=== PATIENT | female | born 1945 | race Caucasian/White ===

== ENCOUNTER 2017-04-28 15:09 | Emergency (ER) | payer MEDICARE ==
[2017-04-28] MEDS ORDERED: TRAZ-146 PO (21:18)
[2017-04-28] MEDS ORDERED: LISI-600 PO (21:18)
[2017-04-28] MEDS ORDERED: AMLO5TAB PO (21:18)
[2017-04-28] MEDS ORDERED: PARO40TA4 PO (21:18)
== END 2017-04-28 16:24 | disposition left against medical advice (07) ==
LOC: ER 15:10
DX: K92.1 Melena (principal); Z53.21 Procedure and treatment not carried out due to patient leaving prior to being seen by health care provider

== ENCOUNTER 2017-04-28 16:55 | Inpatient (IN) | payer MEDICARE ==
[~2017-04-28] VITALS: Ht 160 cm; Wt 53.8 kg
[2017-04-28 17:38] LABS: BASOPHILS # (AUTO) 0.1 X10'3 (0-0.2); BASOPHILS % (AUTO) 0.8 % (0-1); EOSINOPHILS # (AUTO) 0.2 X10'3 (0-0.9); EOSINOPHILS % (AUTO) 2.2 % (0-6); HEMATOCRIT 35.7 % (35.0-45.0); LYMPHOCYTES # (AUTO) 2.4 X10'3 (1.1-4.8); MEAN CORPUSCULAR HEMOGLOBIN 32.3 PG (27.0-31.0); MEAN CORPUSCULAR HGB CONC 33.6 % (33.0-36.5); MEAN CORPUSCULAR VOLUME 96.1 FL (78-98); MEAN PLATELET VOLUME 7.3 FL (7.4-10.4); MONOCYTES # (AUTO) 0.8 X10'3 (0-0.9); MONOCYTES % (AUTO) 9.2 % (2-12); NEUTROPHILS # (AUTO) 5.4 X10'3 (1.8-7.7); NEUTROPHILS % (AUTO) 60.8 % (42-75); PLATELET COUNT 337 X10'3 (140-440); RED BLOOD COUNT 3.71 X10'6 (4.20-5.60); RED CELL DISTRIBUTION WIDTH 18.1 % (11.5-14.5); WHITE BLOOD COUNT 8.9 X10'3 (4.5-11.0)
[2017-04-28 17:48] LABS: INR 0.9 INR; PROTHROMBIN TIME 9.3 SECONDS (9.0-12.0)
[2017-04-28 17:52] LABS: ALANINE AMINOTRANSFERASE 33 U/L (12-78); ALBUMIN/GLOBULIN RATIO 1.3 (1.1-1.5); ALKALINE PHOSPHATASE 88 IU/L (46-116); ANION GAP 13 (8-16); ASPARTATE AMINO TRANSFERASE 50 U/L (10-37); BILIRUBIN,TOTAL 0.3 MG/DL (0.1-1.0); BLOOD UREA NITROGEN 31 MG/DL (7-18); BUN/CREATININE RATIO 34.4 (6.6-38.0); CALCIUM 9.4 MG/DL (8.5-10.1); CHLORIDE 104 MMOL/L (99-107); GLUCOSE 104 MG/DL (70-104); SODIUM 143 MMOL/L (135-145); TOTAL CARBON DIOXIDE 25.9 MMOL/L (24-32); TOTAL PROTEIN 7.2 G/DL (6.4-8.2); eGFR 62 ML/MIN
[2017-04-28 19:23] LABS: PARTIAL THROMBOPLASTIN TIME 25 SECONDS (22-32)
[2017-04-28 19:31] LABS: LIPASE 1846 U/L (73-393)
[2017-04-28 20:41] LABS: CLARITY,URINE CLEAR (Clear); COLOR,URINE YELLOW (Yellow); GLUCOSE, URINE NEGATIVE (Neg); KETONES,URINE 15 mg/dl (Neg); LEUKOCYTE ESTERASE ,URINE TRACE (Neg); NITRITES, URINE NEGATIVE (Neg); OCCULT BLOOD,URINE NEGATIVE (Neg); PH,URINE 5.5 (4.8-8.0); PROTEIN,URINE NEGATIVE (Neg); UROBILINOGEN,URINE 0.2 E.U/dL (0.2-1.0)
[2017-04-28 20:47] LABS: UA COLLECTION TYPE CLN CATCH MIDSTREAM
[2017-04-28 20:57] LABS: BACTERIA,URINE 4+ /HPF (Neg); RBC,URINE 0-2 /HPF (0-2); SQUAMOUS EPITHELIAL CELL,UR MODERATE /LPF (FEW)
[2017-04-28] MEDS ORDERED: temazepam 15mg capsule PO PRN (21:00)
[2017-04-28] MEDS: normal saline 1000ml 1,000 ML IV SCH (21:11)
[2017-04-28] MEDS ORDERED: magnesium Cl slow-release 64mg tablet PO PRN (21:15)
[2017-04-28] MEDS ORDERED: thiamine 100mg/ml 2ml inj. IV ONE (21:15)
[2017-04-28] MEDS ORDERED: dextrose 50%-water 50ml dispensing syringe IV PRN (21:15)
[2017-04-28] MEDS ORDERED: ondansetron/PF 4mg/2ml inj IV PRN (21:15)
[2017-04-28] MEDS ORDERED: ipratropium/albuterol 3ml nebule NEB PRN (21:15)
[2017-04-28] MEDS ORDERED: mag hydrox/Alum hydrox/simeth 30ml oral suspension PO PRN (21:15)
[2017-04-28] MEDS ORDERED: haloperidol lactate 5mg/ml inj IM PRN (21:15)
[2017-04-28] MEDS ORDERED: potassium Cl 20 mEq SR tablet PO PRN (21:15)
[2017-04-28] MEDS ORDERED: potassium Cl 40MEQ/NS 500ml 500 ML IV PRN ×2 (21:15)
[2017-04-28] MEDS ORDERED: acetaminophen 325mg tablet PO PRN (21:15)
[2017-04-28] MEDS ORDERED: HYDROmorphone inj. 0.5 MG/0.5 ML DISP.SYRIN IV PRN ×2 (21:15)
[2017-04-28] MEDS ORDERED: haloperidol 5mg tablet PO PRN (21:15)
[2017-04-28] MEDS ORDERED: magnesium 2GM in 50ml NS 50 ML IV PRN (21:15)
[2017-04-28] MEDS ORDERED: magnesium 4gm in 100ml NS 100 ML IV PRN (21:15)
[2017-04-28] MEDS ORDERED: magnesium hydroxide 30ml (MOM) UD suspension PO PRN (21:15)
[2017-04-28] MEDS ORDERED: albuterol 2.5 MG/3 ML nebule NEB PRN (21:15)
[2017-04-28] MEDS ORDERED: TRAZ-146 PO (21:18)
[2017-04-28] MEDS ORDERED: PARO40TA4 PO (21:18)
[2017-04-28] MEDS ORDERED: AMLO5TAB PO (21:18)
[2017-04-28] MEDS ORDERED: LISI-600 PO (21:18)
[2017-04-28] MEDS ORDERED: normal saline 1000ml 1,000 ML IV ONE (21:27)
[2017-04-28] MEDS: pantoprazole 40MG/NS 100ML BAG 100 ML IV SCH (21:53)
[2017-04-28] MEDS: LORazepam 2 mg/ml vial IV PRN (22:39)
[2017-04-28 23:00] VITALS: BP 150/66
[2017-04-29] VITALS (12 sets, daily range): BP systolic 100–161; BP diastolic 49–99
[2017-04-29] MEDS: LORazepam 2 mg/ml vial IV PRN ×6 (01:48→21:15)
[2017-04-29] MEDS: cefTRIAXone 1g/NS 100ml IVPB 100 ML IV SCH ×2 (01:48→22:28)
[2017-04-29] MEDS: pantoprazole 40MG/NS 100ML BAG 100 ML IV SCH ×2 (01:55→06:47)
[2017-04-29 05:17] LABS: HEMATOCRIT 30.6 % (35.0-45.0); HEMOGLOBIN 10.4 g/dl (12.0-16.0); MEAN CORPUSCULAR HEMOGLOBIN 32.6 PG (27.0-31.0); MEAN CORPUSCULAR HGB CONC 34.1 % (33.0-36.5); MEAN CORPUSCULAR VOLUME 95.7 FL (78-98); MEAN PLATELET VOLUME 7.7 FL (7.4-10.4); PLATELET COUNT 258 X10'3 (140-440); RED CELL DISTRIBUTION WIDTH 18.3 % (11.5-14.5); WHITE BLOOD COUNT 7.3 X10'3 (4.5-11.0)
[2017-04-29 06:03] LABS: ALANINE AMINOTRANSFERASE 30 U/L (12-78); ALBUMIN 3.2 G/DL (3.4-5.0); ALBUMIN/GLOBULIN RATIO 1.1 (1.1-1.5); ALKALINE PHOSPHATASE 73 IU/L (46-116); ANION GAP 13 (8-16); ASPARTATE AMINO TRANSFERASE 40 U/L (10-37); BILIRUBIN,TOTAL 0.5 MG/DL (0.1-1.0); BLOOD UREA NITROGEN 27 MG/DL (7-18); CALCIUM 8.4 MG/DL (8.5-10.1); CHLORIDE 106 MMOL/L (99-107); CREATININE 0.73 MG/DL (0.40-0.90); GLUCOSE 80 MG/DL (70-104); MAGNESIUM 1.4 MG/DL (1.5-2.4); POTASSIUM 4.2 MMOL/L (3.5-5.1); SODIUM 143 MMOL/L (135-145); TOTAL CARBON DIOXIDE 23.8 MMOL/L (24-32); TOTAL PROTEIN 6.1 G/DL (6.4-8.2); eGFR 79 ML/MIN
[2017-04-29] MEDS: normal saline 1000ml 1,000 ML IV SCH (06:48)
[2017-04-29 07:22] LABS: TOTAL CELLS COUNTED 100
[2017-04-29 07:23] LABS: ANISOCYTOSIS 2+; HYPOCHROMASIA 1+; PLATELET ESTIMATE NORMAL; SCHISTOCYTES FEW; TARGET CELLS 1+
[2017-04-29] MEDS: K and/or MAG REPLACEMENT MC SCH (08:00)
[2017-04-29] MEDS ORDERED: cefTRIAXone 1g/NS 100ml IVPB 100 ML IV SCH (08:00)
[2017-04-29] MEDS ORDERED: pneumococcal 23-VAL P-sac vacc 25 mcg/0.5ml vial IMVAC ONE (10:00)
[2017-04-29] MEDS ORDERED: FLU VACC QS2017-18 36MOS UP/PF 60 MCG/0.5 ML SYRINGE IMVAC ONE (10:00)
[2017-04-29] MEDS: dextrose 5%-normal saline 1,000 ML IV SCH ×2 (10:12→19:32)
[2017-04-29] MEDS ORDERED: normal saline 1000ml 1,000 ML IV SCH (11:37)
[2017-04-29] MEDS ORDERED: MIDAZolam 1mg/ml 10ml vial IV PRN (11:40)
[2017-04-29] MEDS ORDERED: fentaNYL/PF 50MCG/1 ML 2ML syringe IV PRN (11:40)
[2017-04-29] MEDS ORDERED: LIDOcaine Viscous 15ml cup PO ONE (11:40)
[2017-04-29] MEDS ORDERED: simethicone 40mg/0.6ml oral drops 30ml MC ONE (11:40)
[2017-04-29] MEDS ORDERED: fentaNYL/PF 50MCG/1 ML 2ML syringe ONE (11:45)
[2017-04-29] MEDS ORDERED: LIDOcaine Viscous 15ml cup ONE (11:45)
[2017-04-29] MEDS ORDERED: MIDAZolam 1mg/ml 10ml vial ONE (11:45)
[2017-04-29] MEDS: lactobacillus rhamnosus 10,000 MMU CELLS/CAPSULE PO SCH (16:52)
[2017-04-29] MEDS: pantoprazole 40mg Tablet.DR PO SCH (19:23)
[2017-04-29] MEDS: traZODone 50mg tablet PO SCH (21:15)
[2017-04-30] VITALS: BP 152/66
[2017-04-30] MEDS: dextrose 5%-normal saline 1,000 ML IV SCH ×2 (01:36→14:25)
[2017-04-30] MEDS: thiamine 100mg tablet PO SCH (07:06)
[2017-04-30] MEDS: multivitamins, therapeutics tablet PO SCH (07:06)
[2017-04-30] MEDS: pantoprazole 40mg Tablet.DR PO SCH ×2 (07:06→21:35)
[2017-04-30] MEDS: lisinopril 20mg tablet PO SCH (07:06)
[2017-04-30] MEDS: amLODIPine 5mg tablet PO SCH (07:06)
[2017-04-30] MEDS: lactobacillus rhamnosus 10,000 MMU CELLS/CAPSULE PO SCH ×2 (07:08→17:15)
[2017-04-30 07:12] LABS: HEMATOCRIT 30.5 % (35.0-45.0); HEMOGLOBIN 10.4 g/dl (12.0-16.0); MEAN CORPUSCULAR HEMOGLOBIN 32.5 PG (27.0-31.0); MEAN CORPUSCULAR VOLUME 95.7 FL (78-98); MEAN PLATELET VOLUME 7.1 FL (7.4-10.4); PLATELET COUNT 262 X10'3 (140-440); RED BLOOD COUNT 3.19 X10'6 (4.20-5.60); RED CELL DISTRIBUTION WIDTH 17.9 % (11.5-14.5); WHITE BLOOD COUNT 7.1 X10'3 (4.5-11.0)
[2017-04-30] MEDS: LORazepam 2 mg/ml vial IV PRN ×4 (07:12→21:10)
[2017-04-30 07:28] LABS: TOTAL CELLS COUNTED 100
[2017-04-30 07:29] LABS: ALANINE AMINOTRANSFERASE 29 U/L (12-78); ALBUMIN 2.8 G/DL (3.4-5.0); ALKALINE PHOSPHATASE 72 IU/L (46-116); ANION GAP 10 (8-16); ANISOCYTOSIS 2+; ASPARTATE AMINO TRANSFERASE 26 U/L (10-37); BILIRUBIN,TOTAL 0.4 MG/DL (0.1-1.0); BLOOD UREA NITROGEN 11 MG/DL (7-18); BUN/CREATININE RATIO 18.3 (6.6-38.0); CALCIUM 7.7 MG/DL (8.5-10.1); CHLORIDE 108 MMOL/L (99-107); GLUCOSE 151 MG/DL (70-104); LIPASE 291 U/L (73-393); MAGNESIUM 1.5 MG/DL (1.5-2.4); PLATELET ESTIMATE NORMAL; POTASSIUM 3.5 MMOL/L (3.5-5.1); SODIUM 145 MMOL/L (135-145); TARGET CELLS FEW; TOTAL CARBON DIOXIDE 26.9 MMOL/L (24-32); TOTAL PROTEIN 5.7 G/DL (6.4-8.2); eGFR > 90 ML/MIN
[2017-04-30] MEDS: K and/or MAG REPLACEMENT MC SCH (08:00)
[2017-04-30 08:01] VITALS: BP 184/81
[2017-04-30] MEDS: PARoxetine 20mg tablet PO SCH (08:13)
[2017-04-30] MEDS: folic acid/vitamin B complex w/vitamin C 0.8mg tablet PO SCH (08:13)
[2017-04-30 11:34] VITALS: BP 131/58
[2017-04-30 19:00] VITALS: BP 137/69
[2017-04-30] MEDS ORDERED: CefTRIAXone 1 gm/50ml D5W ADV 50 ML IV SCH (21:00)
[2017-04-30] MEDS ORDERED: LORazepam 2 mg/ml vial IV PRN (21:15)
[2017-04-30] MEDS: traZODone 50mg tablet PO SCH ×2 (21:17→21:34)
[2017-05-01] VITALS: BP 150/84
[2017-05-01] MEDS: dextrose 5%-normal saline 1,000 ML IV SCH ×3 (02:05→22:05)
[2017-05-01 05:29] LABS: BASOPHILS % (AUTO) 0.2 % (0-1); EOSINOPHILS # (AUTO) 0.1 X10'3 (0-0.9); EOSINOPHILS % (AUTO) 2.3 % (0-6); HEMATOCRIT 31.2 % (35.0-45.0); HEMOGLOBIN 10.8 g/dl (12.0-16.0); LYMPHOCYTES # (AUTO) 1.6 X10'3 (1.1-4.8); MEAN CORPUSCULAR HEMOGLOBIN 32.5 PG (27.0-31.0); MEAN CORPUSCULAR HGB CONC 34.5 % (33.0-36.5); MEAN CORPUSCULAR VOLUME 94.4 FL (78-98); MEAN PLATELET VOLUME 7.2 FL (7.4-10.4); MONOCYTES # (AUTO) 0.7 X10'3 (0-0.9); MONOCYTES % (AUTO) 10.7 % (2-12); NEUTROPHILS % (AUTO) 61.8 % (42-75); PLATELET COUNT 247 X10'3 (140-440); RED BLOOD COUNT 3.31 X10'6 (4.20-5.60); RED CELL DISTRIBUTION WIDTH 17.4 % (11.5-14.5); WHITE BLOOD COUNT 6.4 X10'3 (4.5-11.0)
[2017-05-01] MEDS: LORazepam 1 MG tablet PO PRN ×4 (05:58→22:53)
[2017-05-01 05:59] LABS: ALANINE AMINOTRANSFERASE 19 U/L (12-78); ALBUMIN 2.9 G/DL (3.4-5.0); ALBUMIN/GLOBULIN RATIO 0.9 (1.1-1.5); ALKALINE PHOSPHATASE 78 IU/L (46-116); ANION GAP 11 (8-16); ASPARTATE AMINO TRANSFERASE 17 U/L (10-37); BILIRUBIN,TOTAL 0.3 MG/DL (0.1-1.0); BLOOD UREA NITROGEN 4 MG/DL (7-18); BUN/CREATININE RATIO 7.3 (6.6-38.0); CALCIUM 8.6 MG/DL (8.5-10.1); CHLORIDE 108 MMOL/L (99-107); CREATININE 0.55 MG/DL (0.40-0.90); GLUCOSE 126 MG/DL (70-104); MAGNESIUM 1.1 MG/DL (1.5-2.4); POTASSIUM 3.4 MMOL/L (3.5-5.1); SODIUM 146 MMOL/L (135-145); TOTAL CARBON DIOXIDE 27.3 MMOL/L (24-32); eGFR > 90 ML/MIN
[2017-05-01 07:30] VITALS: BP 150/82
[2017-05-01] MEDS: K and/or MAG REPLACEMENT MC SCH (08:00)
[2017-05-01] MEDS: folic acid/vitamin B complex w/vitamin C 0.8mg tablet PO SCH (09:32)
[2017-05-01] MEDS: lactobacillus rhamnosus 10,000 MMU CELLS/CAPSULE PO SCH ×2 (09:32→16:52)
[2017-05-01] MEDS: amLODIPine 5mg tablet PO SCH (09:32)
[2017-05-01] MEDS: multivitamins, therapeutics tablet PO SCH (09:33)
[2017-05-01] MEDS: thiamine 100mg tablet PO SCH (09:33)
[2017-05-01] MEDS: lisinopril 20mg tablet PO SCH (09:33)
[2017-05-01] MEDS: pantoprazole 40mg Tablet.DR PO SCH ×2 (09:36→19:36)
[2017-05-01] MEDS: PARoxetine 20mg tablet PO SCH (09:38)
[2017-05-01] MEDS: potassium Cl 20 mEq SR tablet PO PRN ×2 (09:49→17:36)
[2017-05-01 11:15] VITALS: BP 147/80
[2017-05-01] MEDS: traZODone 50mg tablet PO SCH (19:36)
[2017-05-01 20:00] VITALS: BP 151/82
[2017-05-01 23:00] VITALS: BP 154/67
[2017-05-02 04:58] LABS: BASOPHILS % (AUTO) 0 % (0-1); EOSINOPHILS # (AUTO) 0.2 X10'3 (0-0.9); EOSINOPHILS % (AUTO) 1.8 % (0-6); HEMATOCRIT 29.9 % (35.0-45.0); HEMOGLOBIN 9.9 g/dl (12.0-16.0); LYMPHOCYTES # (AUTO) 1.4 X10'3 (1.1-4.8); LYMPHOCYTES % (AUTO) 16.9 % (21-51); MEAN CORPUSCULAR HEMOGLOBIN 31.9 PG (27.0-31.0); MEAN CORPUSCULAR HGB CONC 33.2 % (33.0-36.5); MEAN CORPUSCULAR VOLUME 96.2 FL (78-98); MEAN PLATELET VOLUME 7.3 FL (7.4-10.4); MONOCYTES # (AUTO) 1.1 X10'3 (0-0.9); MONOCYTES % (AUTO) 12.9 % (2-12); NEUTROPHILS # (AUTO) 5.7 X10'3 (1.8-7.7); NEUTROPHILS % (AUTO) 68.4 % (42-75); PLATELET COUNT 253 X10'3 (140-440); RED BLOOD COUNT 3.11 X10'6 (4.20-5.60); RED CELL DISTRIBUTION WIDTH 17.5 % (11.5-14.5); WHITE BLOOD COUNT 8.4 X10'3 (4.5-11.0)
[2017-05-02 05:14] LABS: ALANINE AMINOTRANSFERASE 23 U/L (12-78); ALBUMIN/GLOBULIN RATIO 0.9 (1.1-1.5); ALKALINE PHOSPHATASE 87 IU/L (46-116); ANION GAP 8 (8-16); ASPARTATE AMINO TRANSFERASE 16 U/L (10-37); BILIRUBIN,TOTAL 0.5 MG/DL (0.1-1.0); BLOOD UREA NITROGEN 6 MG/DL (7-18); BUN/CREATININE RATIO 10.2 (6.6-38.0); CALCIUM 9.1 MG/DL (8.5-10.1); CHLORIDE 103 MMOL/L (99-107); CREATININE 0.59 MG/DL (0.40-0.90); GLUCOSE 105 MG/DL (70-104); MAGNESIUM 1.1 MG/DL (1.5-2.4); POTASSIUM 3.8 MMOL/L (3.5-5.1); SODIUM 139 MMOL/L (135-145); TOTAL CARBON DIOXIDE 27.7 MMOL/L (24-32); TOTAL PROTEIN 6.2 G/DL (6.4-8.2); eGFR > 90 ML/MIN
[2017-05-02] MEDS: dextrose 5%-normal saline 1,000 ML IV SCH ×2 (05:14→16:49)
[2017-05-02 07:39] VITALS: BP 158/74
[2017-05-02] MEDS: K and/or MAG REPLACEMENT MC SCH (08:00)
[2017-05-02] MEDS: lactobacillus rhamnosus 10,000 MMU CELLS/CAPSULE PO SCH ×2 (08:16→17:02)
[2017-05-02] MEDS: PARoxetine 20mg tablet PO SCH (08:17)
[2017-05-02] MEDS: amLODIPine 5mg tablet PO SCH (08:17)
[2017-05-02] MEDS: folic acid/vitamin B complex w/vitamin C 0.8mg tablet PO SCH (08:17)
[2017-05-02] MEDS: lisinopril 20mg tablet PO SCH (08:18)
[2017-05-02] MEDS: multivitamins, therapeutics tablet PO SCH (08:18)
[2017-05-02] MEDS: nitrofuran/nitrofuran macrocrysal 100 MG capsule PO SCH ×2 (08:18→17:03)
[2017-05-02] MEDS: pantoprazole 40mg Tablet.DR PO SCH ×2 (08:18→21:20)
[2017-05-02] MEDS: thiamine 100mg tablet PO SCH (08:18)
[2017-05-02] MEDS: LORazepam 1 MG tablet PO PRN ×2 (08:19→14:58)
[2017-05-02] MEDS ORDERED: potassium Cl 40MEQ/NS 500ml 500 ML IV PRN ×2 (10:45)
[2017-05-02] MEDS ORDERED: magnesium 4gm in 100ml NS 100 ML IV PRN (10:45)
[2017-05-02] MEDS ORDERED: magnesium 2GM in 50ml NS 50 ML IV PRN (10:45)
[2017-05-02] MEDS ORDERED: magnesium Cl slow-release 64mg tablet PO PRN (10:45)
[2017-05-02] MEDS ORDERED: potassium Cl 20 mEq SR tablet PO PRN ×2 (10:45)
[2017-05-02 11:37] VITALS: BP 175/80
[2017-05-02 20:00] VITALS: BP 112/48
[2017-05-02] MEDS: traZODone 50mg tablet PO SCH (21:00)
[2017-05-02] MEDS ORDERED: LORazepam 2 mg/ml vial IV PRN (21:15)
[2017-05-02] MEDS: cloNIDine 0.1 mg tablet PO SCH (21:20)
[2017-05-03] VITALS: BP 129/49
[2017-05-03] MEDS: dextrose 5%-normal saline 1,000 ML IV SCH ×2 (03:33→12:23)
[2017-05-03 06:03] LABS: BASOPHILS % (AUTO) 0.3 % (0-1); EOSINOPHILS # (AUTO) 0.2 X10'3 (0-0.9); HEMATOCRIT 28.7 % (35.0-45.0); HEMOGLOBIN 9.7 g/dl (12.0-16.0); LYMPHOCYTES # (AUTO) 0.9 X10'3 (1.1-4.8); LYMPHOCYTES % (AUTO) 11.8 % (21-51); MEAN CORPUSCULAR HEMOGLOBIN 32.7 PG (27.0-31.0); MEAN CORPUSCULAR HGB CONC 33.8 % (33.0-36.5); MEAN CORPUSCULAR VOLUME 96.6 FL (78-98); MEAN PLATELET VOLUME 7.3 FL (7.4-10.4); MONOCYTES % (AUTO) 12.8 % (2-12); NEUTROPHILS # (AUTO) 5.7 X10'3 (1.8-7.7); NEUTROPHILS % (AUTO) 73.1 % (42-75); PLATELET COUNT 239 X10'3 (140-440); RED BLOOD COUNT 2.97 X10'6 (4.20-5.60); RED CELL DISTRIBUTION WIDTH 16.8 % (11.5-14.5); WHITE BLOOD COUNT 7.8 X10'3 (4.5-11.0)
[2017-05-03 06:31] LABS: ALANINE AMINOTRANSFERASE 22 U/L (12-78); ALBUMIN 2.7 G/DL (3.4-5.0); ALBUMIN/GLOBULIN RATIO 0.8 (1.1-1.5); ALKALINE PHOSPHATASE 85 IU/L (46-116); ANION GAP 9 (8-16); ASPARTATE AMINO TRANSFERASE 20 U/L (10-37); BILIRUBIN,TOTAL 0.3 MG/DL (0.1-1.0); BLOOD UREA NITROGEN 7 MG/DL (7-18); BUN/CREATININE RATIO 9.9 (6.6-38.0); CALCIUM 8.4 MG/DL (8.5-10.1); CHLORIDE 106 MMOL/L (99-107); CREATININE 0.71 MG/DL (0.40-0.90); GLUCOSE 136 MG/DL (70-104); MAGNESIUM 1.5 MG/DL (1.5-2.4); POTASSIUM 4.2 MMOL/L (3.5-5.1); SODIUM 143 MMOL/L (135-145); eGFR 81 ML/MIN
[2017-05-03] MEDS: nitrofuran/nitrofuran macrocrysal 100 MG capsule PO SCH ×2 (07:49→17:32)
[2017-05-03] MEDS: lactobacillus rhamnosus 10,000 MMU CELLS/CAPSULE PO SCH ×2 (07:49→17:32)
[2017-05-03] MEDS: thiamine 100mg tablet PO SCH (07:50)
[2017-05-03] MEDS: folic acid/vitamin B complex w/vitamin C 0.8mg tablet PO SCH (07:50)
[2017-05-03] MEDS: pantoprazole 40mg Tablet.DR PO SCH ×2 (07:50→20:30)
[2017-05-03] MEDS: lisinopril 20mg tablet PO SCH (07:50)
[2017-05-03] MEDS: amLODIPine 5mg tablet PO SCH (07:50)
[2017-05-03] MEDS: multivitamins, therapeutics tablet PO SCH (07:50)
[2017-05-03] MEDS: cloNIDine 0.1 mg tablet PO SCH ×2 (07:50→20:29)
[2017-05-03] MEDS: PARoxetine 20mg tablet PO SCH (07:55)
[2017-05-03] MEDS: K and/or MAG REPLACEMENT MC SCH (07:58)
[2017-05-03 08:00] VITALS: BP 146/59
[2017-05-03 11:30] VITALS: BP 141/63
[2017-05-03] MEDS: LORazepam 1 MG tablet PO PRN ×2 (12:22→16:11)
[2017-05-03] MEDS ORDERED: HYDROcodone/acetaminophen 5mg/325mg tablet PO PRN (16:40)
[2017-05-03 20:00] VITALS: BP 137/60
[2017-05-03] MEDS: traZODone 50mg tablet PO SCH (20:30)
[2017-05-04] VITALS: BP 137/83
[2017-05-04] MEDS: dextrose 5%-normal saline 1,000 ML IV SCH (01:18)
[2017-05-04] MEDS: HYDROcodone/acetaminophen 10/325mg tab PO PRN ×2 (01:30→07:37)
[2017-05-04 06:23] LABS: MAGNESIUM 1.3 MG/DL (1.5-2.4)
[2017-05-04] MEDS: K and/or MAG REPLACEMENT MC SCH (07:15)
[2017-05-04 07:24] VITALS: BP 140/52
[2017-05-04] MEDS: lactobacillus rhamnosus 10,000 MMU CELLS/CAPSULE PO SCH (07:36)
[2017-05-04] MEDS: cloNIDine 0.1 mg tablet PO SCH (07:36)
[2017-05-04] MEDS: folic acid/vitamin B complex w/vitamin C 0.8mg tablet PO SCH (07:36)
[2017-05-04] MEDS: pantoprazole 40mg Tablet.DR PO SCH (07:36)
[2017-05-04] MEDS: amLODIPine 5mg tablet PO SCH (07:37)
[2017-05-04] MEDS: multivitamins, therapeutics tablet PO SCH (07:37)
[2017-05-04] MEDS: thiamine 100mg tablet PO SCH (07:37)
[2017-05-04] MEDS: lisinopril 20mg tablet PO SCH (07:37)
[2017-05-04] MEDS: PARoxetine 20mg tablet PO SCH (07:38)
[2017-05-04] MEDS: nitrofuran/nitrofuran macrocrysal 100 MG capsule PO SCH (07:39)
[2017-05-04 11:49] VITALS: BP_SYST 113; BP_SYST 115; BP_SYST 124; BP_DIAS 52; BP_DIAS 56; BP_DIAS 58
[2017-05-04] MEDS ORDERED: PANT40TA4 PO (12:50)
[2017-05-04] MEDS ORDERED: THI100T PO (12:50)
[2017-05-04] MEDS ORDERED: MULT-1179 PO (12:50)
== END 2017-05-04 14:46 | disposition home or self-care (01) | DRG 377 ==
LOC: ER 16:56 → ED HOLD 21:11 → SUR 3N 22:28
PROVIDERS: ADMIT Internal Medicine; ATTEND Internal Medicine
PROC: 0DB68ZX Excision of Stomach, Via Natural or Artificial Opening Endoscopic, Diagnostic (ICD-10-PCS; principal; 2017-04-29)
DX: K29.01 Acute gastritis with bleeding (principal); K85.90 Acute pancreatitis without necrosis or infection, unspecified; D62 Acute posthemorrhagic anemia; Q39.6 Congenital diverticulum of esophagus; B96.1 Klebsiella pneumoniae [K. pneumoniae] as the cause of diseases classified elsewhere; N39.0 Urinary tract infection, site not specified; F32.9 Major depressive disorder, single episode, unspecified; K44.9 Diaphragmatic hernia without obstruction or gangrene; K26.9 Duodenal ulcer, unspecified as acute or chronic, without hemorrhage or perforation; M54.9 Dorsalgia, unspecified; G47.00 Insomnia, unspecified; M85.80 Other specified disorders of bone density and structure, unspecified site; I10 Essential (primary) hypertension; I73.9 Peripheral vascular disease, unspecified; G89.29 Other chronic pain; M19.90 Unspecified osteoarthritis, unspecified site; R74.8 Abnormal levels of other serum enzymes; F10.20 Alcohol dependence, uncomplicated; Y90.9 Presence of alcohol in blood, level not specified; F17.210 Nicotine dependence, cigarettes, uncomplicated; Z90.710 Acquired absence of both cervix and uterus; Z82.3 Family history of stroke; Z81.1 Family history of alcohol abuse and dependence; Z23 Encounter for immunization; Z71.6 Tobacco abuse counseling
CPT/HCPCS: 36415; 43239; 74176; 80053; 81001; 82948; 83690; 83735; 84132; 85025; 85027; 85610; 85730; 86870; 86885; 86900; 86901; 86905; 87070; 87077; 87088; 87186; 88305; 88342; 90732; 94760; 97116; 97161; 99285; A4620; C9113; G0500; J0696; J1630; J2060; J2250; J3010; J3411; J3475; J7030; J7042; J7070; Q2037

== ENCOUNTER 2019-08-23 17:03 | Emergency (ER) | payer MEDICARE ==
[~2019-08-23 17:03] MED LIST: AMLO5TAB PO; LISI-600 PO; MULT-1179 PO; PANT40TA4 PO; PARO40TA4 PO; THI100T PO; TRAZ-256 PO
== END 2019-08-23 19:08 | disposition left against medical advice (07) ==
LOC: ER 17:04
DX: Z00.8 Encounter for other general examination (principal); Z53.21 Procedure and treatment not carried out due to patient leaving prior to being seen by health care provider

== ENCOUNTER 2019-09-14 14:14 | Emergency (ER) | payer MEDICARE ==
[~2019-09-14] VITALS: Ht 154.9 cm; Wt 54.0 kg
[2019-09-14 15:23] LABS: BASOPHILS # (AUTO) 0.1 X10'3 (0-0.2); BASOPHILS % (AUTO) 1.6 % (0-1); EOSINOPHILS # (AUTO) 0.1 X10'3 (0-0.9); EOSINOPHILS % (AUTO) 1.4 % (0-6); HEMATOCRIT 37.7 % (35.0-45.0); HEMOGLOBIN 12.5 g/dl (12.0-16.0); LYMPHOCYTES # (AUTO) 1.9 X10'3 (1.1-4.8); LYMPHOCYTES % (AUTO) 36.2 % (21-51); MEAN CORPUSCULAR HEMOGLOBIN 35.1 PG (27.0-31.0); MEAN CORPUSCULAR HGB CONC 33.2 g/dL (33.0-36.5); MEAN CORPUSCULAR VOLUME 105.7 FL (78-98); MEAN PLATELET VOLUME 7.9 FL (7.4-10.4); MONOCYTES # (AUTO) 0.6 X10'3 (0-0.9); MONOCYTES % (AUTO) 12.3 % (2-12); NEUTROPHILS # (AUTO) 2.6 X10'3 (1.8-7.7); NEUTROPHILS % (AUTO) 48.5 % (42-75); PLATELET COUNT 175 X10'3 (140-440); RED BLOOD COUNT 3.57 X10'6 (4.20-5.60); WHITE BLOOD COUNT 5.3 X10'3 (4.5-11.0)
[2019-09-14 15:33] LABS: CLARITY,URINE CLEAR (Clear); COLOR,URINE YELLOW (Yellow); GLUCOSE, URINE NEGATIVE (Neg); KETONES,URINE NEGATIVE (Neg); LEUKOCYTE ESTERASE ,URINE NEGATIVE (Neg); NITRITES, URINE NEGATIVE (Neg); OCCULT BLOOD,URINE SMALL (Neg); PROTEIN,URINE 100 mg/dl (Neg)
[2019-09-14 15:34] LABS: UA COLLECTION TYPE CLN CATCH MIDSTREAM
[2019-09-14 15:36] LABS: ALANINE AMINOTRANSFERASE 45 U/L (12-78); ALBUMIN 3.8 G/DL (3.4-5.0); ALBUMIN/GLOBULIN RATIO 1.3 (1.1-1.5); ALKALINE PHOSPHATASE 126 IU/L (46-116); ANION GAP 13 (8-16); ASPARTATE AMINO TRANSFERASE 124 U/L (10-37); BILIRUBIN,TOTAL 0.4 MG/DL (0.1-1.0); BLOOD UREA NITROGEN 13 MG/DL (7-18); BUN/CREATININE RATIO 18.8 (6.6-38.0); CALCIUM 8.9 MG/DL (8.5-10.1); CHLORIDE 107 MMOL/L (99-107); CREATININE 0.69 MG/DL (0.40-0.90); GLUCOSE 60 MG/DL (70-104); POTASSIUM 3.8 MMOL/L (3.5-5.1); SODIUM 147 MMOL/L (135-145); TOTAL CARBON DIOXIDE 27.5 MMOL/L (24-32); TOTAL PROTEIN 6.8 G/DL (6.4-8.2); eGFR 84 ML/MIN
[2019-09-14 15:38] LABS: BACTERIA,URINE FEW /HPF (Neg); MUCUS STRANDS NONE SEEN /LPF (Neg); RBC,URINE 0-2 /HPF (0-2); SQUAMOUS EPITHELIAL CELL,UR MANY /LPF (FEW); WBC,URINE NONE SEEN /HPF (0-4)
[2019-09-14 15:45] VITALS: BP 118/87
== END 2019-09-14 16:30 | disposition home or self-care (01) ==
LOC: ER 14:14
DX: E16.2 Hypoglycemia, unspecified (principal); R41.0 Disorientation, unspecified; Z79.899 Other long term (current) drug therapy; I10 Essential (primary) hypertension; Z98.890 Other specified postprocedural states
CPT/HCPCS: 36415; 80053; 81001; 85025; 93005; 99284

== ENCOUNTER 2020-02-12 12:15 | Emergency (ER) | payer MEDICARE ==
[~2020-02-12] VITALS: Ht 165.1 cm; Wt 54.5 kg
[2020-02-12 12:15] VITALS: BP 148/85
[~2020-02-12 12:15] MED LIST changes: -MULT-1179 PO; +MULT-25 PO; -PANT40TA4 PO; +PANT40TA54 PO; +VANC125C11 PO
== END 2020-02-12 13:44 | disposition home or self-care (01) ==
LOC: ER 12:15
DX: M25.511 Pain in right shoulder (principal); F10.129 Alcohol abuse with intoxication, unspecified; R07.89 Other chest pain; I10 Essential (primary) hypertension; Z98.890 Other specified postprocedural states; Z79.899 Other long term (current) drug therapy; Y90.0 Blood alcohol level of less than 20 mg/100 ml
CPT/HCPCS: 73030; 99283

== ENCOUNTER 2020-04-02 21:26 | Emergency (ER) | payer MEDICARE ==
[~2020-04-02] VITALS: Ht 160 cm; Wt 51.4 kg
[2020-04-02] MEDS ORDERED: normal saline 1000ML IV soln IVB ONE (21:55)
[2020-04-02 22:24] VITALS: BP 107/65
[2020-04-02 22:33] LABS: HEMATOCRIT 31.6 % (35.0-45.0); HEMOGLOBIN 10.5 g/dl (12.0-16.0); MEAN CORPUSCULAR HEMOGLOBIN 34.1 PG (27.0-31.0); MEAN CORPUSCULAR HGB CONC 33.2 g/dL (33.0-36.5); RED BLOOD COUNT 3.08 X10'6 (4.20-5.60)
[2020-04-02 22:34] LABS: BASOPHILS % (AUTO) 0.5 % (0-1); EOSINOPHILS # (AUTO) 0.2 X10'3 (0-0.9); EOSINOPHILS % (AUTO) 4.2 % (0-6); LYMPHOCYTES # (AUTO) 1.6 X10'3 (1.1-4.8); LYMPHOCYTES % (AUTO) 28.3 % (21-51); MEAN CORPUSCULAR VOLUME 102.6 FL (78-98); MEAN PLATELET VOLUME 7.5 FL (7.4-10.4); MONOCYTES # (AUTO) 0.6 X10'3 (0-0.9); MONOCYTES % (AUTO) 10.9 % (2-12); NEUTROPHILS # (AUTO) 3.1 X10'3 (1.8-7.7); NEUTROPHILS % (AUTO) 56.1 % (42-75); PLATELET COUNT 233 X10'3 (140-440); RED CELL DISTRIBUTION WIDTH 16.8 % (11.5-14.5); WHITE BLOOD COUNT 5.5 X10'3 (4.5-11.0)
[2020-04-02 22:39] LABS: ALANINE AMINOTRANSFERASE 44 U/L (12-78); ALBUMIN 3.8 G/DL (3.4-5.0); ALBUMIN/GLOBULIN RATIO 1.2 (1.1-1.5); ALKALINE PHOSPHATASE 95 IU/L (46-116); ANION GAP 11 (8-16); ASPARTATE AMINO TRANSFERASE 92 U/L (10-37); BILIRUBIN,TOTAL 0.3 MG/DL (0.1-1.0); BLOOD UREA NITROGEN 26 MG/DL (7-18); BUN/CREATININE RATIO 27.1 (6.6-38.0); CALCIUM 9.1 MG/DL (8.5-10.1); CHLORIDE 106 MMOL/L (99-107); CREATININE 0.96 MG/DL (0.40-0.90); GLUCOSE 85 MG/DL (70-104); LIPASE 697 U/L (73-393); MAGNESIUM 1.4 MG/DL (1.5-2.4); SODIUM 145 MMOL/L (135-145); eGFR 57 ML/MIN
[2020-04-02] MEDS ORDERED: piperacillin/tazo 3.375gm/50ml 50 ML IV ONE (22:55)
[2020-04-02] MEDS ORDERED: magnesium oxide 400mg tablet PO ONE ×2 (23:05→23:30)
[2020-04-02] MEDS ORDERED: magnesium 2GM in 50ml NS 50 ML IV ONE (23:05)
== END 2020-04-03 01:45 | disposition home or self-care (01) ==
LOC: ER 21:26
DX: K85.90 Acute pancreatitis without necrosis or infection, unspecified (principal); D50.0 Iron deficiency anemia secondary to blood loss (chronic); F10.10 Alcohol abuse, uncomplicated; I10 Essential (primary) hypertension; Z90.710 Acquired absence of both cervix and uterus; Z98.890 Other specified postprocedural states; Z60.2 Problems related to living alone; Z79.899 Other long term (current) drug therapy; Y90.9 Presence of alcohol in blood, level not specified
CPT/HCPCS: 36415; 71045; 80053; 83690; 83735; 84484; 85025; 93005; 96360; 99285; J7030

== ENCOUNTER 2020-11-28 20:11 | Emergency (ER) | payer MEDICARE ==
[~2020-11-28] VITALS: Ht 160 cm; Wt 50.0 kg
[~2020-11-28 20:11] MED LIST changes: -LISI-600 PO; +LISI20TA28 PO; -MULT-25 PO; -THI100T PO; -VANC125C11 PO
[2020-11-28 20:20] VITALS: BP 91/46
== END 2020-11-28 21:15 | disposition home or self-care (01) ==
LOC: ER 20:12
DX: R53.1 Weakness (principal); I10 Essential (primary) hypertension; G89.29 Other chronic pain; M19.90 Unspecified osteoarthritis, unspecified site; Z87.81 Personal history of (healed) traumatic fracture; Z90.710 Acquired absence of both cervix and uterus; Z98.890 Other specified postprocedural states; Z72.89 Other problems related to lifestyle; Z79.899 Other long term (current) drug therapy
CPT/HCPCS: 99284

== ENCOUNTER → 2021-01-11 | Emergency (ER) | payer MEDICARE ==
[~2021-01-11] VITALS: Ht 160 cm; Wt 45.5 kg
--- NOTE | 2021-01-11 23:10 | NUR ---
Pt given and understands d/c instructions. IV d/c'd, catheter was intact.
[2021-01-11 23:11] VITALS: BP 105/74
--- NOTE | 2021-01-12 00:02 | NUR ---
[facility] contacted for follow up with pt. for connection to services and home safety check. Spoke with [facility]PS worker [place]. APS report faxed to [facility].
== END | disposition home or self-care (01) ==
LOC: ER 22:09
DX: R63.0 Anorexia (principal); R45.89 Other symptoms and signs involving emotional state; I10 Essential (primary) hypertension; G89.29 Other chronic pain; Z87.81 Personal history of (healed) traumatic fracture; Z72.89 Other problems related to lifestyle; Z90.710 Acquired absence of both cervix and uterus; Z98.890 Other specified postprocedural states; Z79.899 Other long term (current) drug therapy; Z68.1 Body mass index [BMI] 19.9 or less, adult
CPT/HCPCS: 71045; 99284

== ENCOUNTER 2021-05-25 02:11 | Inpatient (IN) | payer MEDICARE ==
[~2021-05-25] VITALS: Ht 162.6 cm; Wt 45.0 kg
[2021-05-25 02:42] LABS: BASOPHILS # (AUTO) 0.1 X10'3 (0-0.2); BASOPHILS % (AUTO) 0.9 % (0-1); EOSINOPHILS # (AUTO) 0.1 X10'3 (0-0.9); EOSINOPHILS % (AUTO) 0.9 % (0-6); HEMATOCRIT 28.9 % (35.0-45.0); HEMOGLOBIN 9.4 g/dl (12.0-16.0); LYMPHOCYTES # (AUTO) 1.8 X10'3 (1.1-4.8); LYMPHOCYTES % (AUTO) 30.4 % (21-51); MEAN CORPUSCULAR HEMOGLOBIN 33.8 PG (27.0-31.0); MEAN CORPUSCULAR HGB CONC 32.7 g/dL (33.0-36.5); MEAN CORPUSCULAR VOLUME 103.5 FL (78-98); MEAN PLATELET VOLUME 7.1 FL (7.4-10.4); MONOCYTES # (AUTO) 0.6 X10'3 (0-0.9); MONOCYTES % (AUTO) 10.7 % (2-12); NEUTROPHILS # (AUTO) 3.4 X10'3 (1.8-7.7); NEUTROPHILS % (AUTO) 57.1 % (42-75); PLATELET COUNT 303 X10'3 (140-440); RED BLOOD COUNT 2.79 X10'6 (4.20-5.60); RED CELL DISTRIBUTION WIDTH 20.6 % (11.5-14.5); WHITE BLOOD COUNT 5.9 X10'3 (4.5-11.0)
--- NOTE | 2021-05-25 02:42 | NUR ---
ADVISED DR MARRERO OF PT LOW BLOOD PRESSURE
[2021-05-25] MEDS ORDERED: normal saline 1000ML IV soln IVB ONE ×2 (02:45→03:35)
[2021-05-25] MEDS ORDERED: ondansetron/PF 4mg/2ml inj IV ONE (02:45)
[2021-05-25] MEDS ORDERED: pantoprazole IV 80 MG in normal saline 100ml IV soln 100 ML IV ONE (02:45)
[2021-05-25 02:59] LABS: ALANINE AMINOTRANSFERASE 14 U/L (12-78); ALBUMIN 3.3 G/DL (3.4-5.0); ALKALINE PHOSPHATASE 56 IU/L (46-116); ANION GAP 17 (8-16); ASPARTATE AMINO TRANSFERASE 21 U/L (10-37); BILIRUBIN,TOTAL 0.1 MG/DL (0.1-1.0); BLOOD UREA NITROGEN 27 MG/DL (7-18); BUN/CREATININE RATIO 16.3 (6.6-38.0); CALCIUM 9.3 MG/DL (8.5-10.1); CHLORIDE 109 MMOL/L (99-107); CREATININE 1.66 MG/DL (0.40-0.90); GLUCOSE 125 MG/DL (70-104); POTASSIUM 3.6 MMOL/L (3.5-5.1); SODIUM 146 MMOL/L (135-145); TOTAL CARBON DIOXIDE 19.8 MMOL/L (24-32); TOTAL PROTEIN 6.7 G/DL (6.4-8.2); eGFR 30 ML/MIN
[2021-05-25] MEDS: pantoprazole 40MG/NS 100ML BAG 100 ML IV SCH ×4 (03:05→20:53)
[2021-05-25 03:07] LABS: ETHANOL 0.154 GM/DL (0.0-0.010); LIPASE 245 U/L (73-393)
[2021-05-25 03:35] LABS: CLARITY,URINE CLOUDY (Clear); COLOR,URINE YELLOW (Yellow); GLUCOSE, URINE NEGATIVE (Neg); KETONES,URINE TRACE mg/dl (Neg); LEUKOCYTE ESTERASE ,URINE NEGATIVE (Neg); NITRITES, URINE NEGATIVE (Neg); OCCULT BLOOD,URINE NEGATIVE (Neg); PH,URINE 5.5 (4.8-8.0); PROTEIN,URINE TRACE mg/dl (Neg); UROBILINOGEN,URINE 0.2 E.U/dL (0.2-1.0)
[2021-05-25 03:36] LABS: UA COLLECTION TYPE STRAIGHT CATH
--- NOTE | 2021-05-25 03:45 | NUR ---
ADVISED DR MARRERO OF PT FINISHING 2L NS AND STILL HYPOTENSIVE. PT ALSO TREMBLING AND STATES SHE LAST DRANK YESTERDAY, ADVISED DR MARRERO
[2021-05-25 03:48] LABS: RBC,URINE 0-2 /HPF (0-2); WBC,URINE 0-4 /HPF (0-4)
[2021-05-25 03:49] LABS: AMORPHOUS URATES 1+; BACTERIA,URINE NONE SEEN /HPF (Neg); CAL OXALATE CRYSTALS 1+ /HPF (NEGATIVE); RENAL CELLS, URINE MODERATE /HPF; SQUAMOUS EPITHELIAL CELL,UR FEW /LPF (FEW); TRANSITIONAL EPI CELLS,URINE FEW /HPF
[2021-05-25 03:50] LABS: MUCUS STRANDS FEW /LPF (Neg)
[2021-05-25 04:10] LABS: ANISOCYTOSIS 3+; PLATELET ESTIMATE NORMAL
[2021-05-25 04:12] LABS: LARGE PLATELETS FEW; POLYCHROMASIA FEW; SCHISTOCYTES FEW
--- NOTE | 2021-05-25 04:16 | NUR ---
ADVISED DR MARRERO THAT PT HAS FINISHED FINAL L NS. ADJUSTED CUFF SIZE FOR PT TO REACH A BETTER BP THAT IS NO LONGER HYPOTENSIVE.
[2021-05-25 04:22] LABS: LACTIC SEPSIS 4.1 MMOL/L (0.4-2.0)
[2021-05-25] MEDS ORDERED: folic acid 1mg tablet PO SCH (05:10)
[2021-05-25] MEDS ORDERED: LORazepam 2 mg/ml vial IV PRN ×4 (05:10)
[2021-05-25] MEDS ORDERED: magnesium 4gm in 100ml NS 100 ML IV PRN (05:10)
[2021-05-25] MEDS ORDERED: normal saline 1000ml 1,000 ML IV SCH (05:10)
[2021-05-25] MEDS ORDERED: dextrose 50%-water 50ml dispensing syringe IV PRN ×3 (05:10)
[2021-05-25] MEDS ORDERED: magnesium Cl slow-release 64mg tablet PO PRN (05:10)
[2021-05-25] MEDS ORDERED: HYDROcodone/acetaminophen 5mg/325mg tablet PO PRN (05:10)
[2021-05-25] MEDS ORDERED: magnesium hydroxide 30ml (MOM) UD suspension PO PRN (05:10)
[2021-05-25] MEDS ORDERED: haloperidol 5mg tablet PO PRN ×2 (05:10)
[2021-05-25] MEDS ORDERED: magnesium 2GM in 50ml NS 50 ML IV PRN (05:10)
[2021-05-25] MEDS ORDERED: potassium Cl 20 mEq SR tablet PO PRN (05:10)
[2021-05-25] MEDS ORDERED: potassium CL 10mEq/100ml bag 100 ML IV PRN (05:10)
[2021-05-25] MEDS ORDERED: morphine 2 MG/ML inj. syringe IV PRN (05:10)
[2021-05-25] MEDS ORDERED: mag hydrox/Alum hydrox/simeth 30ml oral suspension PO PRN (05:10)
[2021-05-25] MEDS ORDERED: ondansetron/PF 4mg/2ml inj IV PRN (05:10)
[2021-05-25] MEDS ORDERED: thiamine 100mg tablet PO SCH (05:10)
[2021-05-25] MEDS ORDERED: haloperidol lactate 5mg/ml inj IM PRN ×2 (05:10)
[2021-05-25] MEDS ORDERED: HYDROcodone/acetaminophen 10/325mg tab PO PRN (05:10)
[2021-05-25] MEDS ORDERED: OMEP40CA21 PO (05:15)
[2021-05-25] MEDS: LORazepam 1 MG tablet PO PRN (05:47)
[2021-05-25 05:54] LABS: MAGNESIUM 1.3 MG/DL (1.5-2.4)
[2021-05-25 06:00] LABS: HEMOGLOBIN A1C 4.9 % (4.5-6.2)
[2021-05-25 07:09] LABS: POTASSIUM 3.4 MMOL/L (3.5-5.1)
[2021-05-25 07:25] VITALS: BP 115/70
[2021-05-25] MEDS ORDERED: enoxaparin 40mg/0.4ml syringe SUBCUT SCH (08:00)
[2021-05-25] MEDS ORDERED: folic acid 1mg/0.2ml inj IV SCH ×2 (08:00)
[2021-05-25] MEDS: K and/or MAG REPLACEMENT MC SCH ×2 (08:29→20:00)
[2021-05-25] MEDS: folic acid 1mg/0.2ml inj IV SCH (08:29)
[2021-05-25] MEDS: thiamine 100mg/ml 2ml inj. IV SCH ×3 (08:29→20:53)
[2021-05-25] MEDS: docusate sod 100mg capsule PO SCH ×2 (08:29→20:00)
[2021-05-25] MEDS: potassium Cl 20 mEq SR tablet PO PRN ×2 (08:29→14:00)
[2021-05-25 09:46] LABS: HEMATOCRIT 25.8 % (35.0-45.0); HEMOGLOBIN 8.4 g/dl (12.0-16.0); MEAN CORPUSCULAR HEMOGLOBIN 33.6 PG (27.0-31.0); MEAN CORPUSCULAR HGB CONC 32.5 g/dL (33.0-36.5); MEAN CORPUSCULAR VOLUME 103.4 FL (78-98); MEAN PLATELET VOLUME 7.4 FL (7.4-10.4); PLATELET COUNT 266 X10'3 (140-440); RED BLOOD COUNT 2.49 X10'6 (4.20-5.60); RED CELL DISTRIBUTION WIDTH 20.5 % (11.5-14.5); WHITE BLOOD COUNT 5.6 X10'3 (4.5-11.0)
[2021-05-25 09:51] LABS: ALANINE AMINOTRANSFERASE 12 U/L (12-78); ALBUMIN 2.8 G/DL (3.4-5.0); ALBUMIN/GLOBULIN RATIO 1.1 (1.1-1.5); ALKALINE PHOSPHATASE 48 IU/L (46-116); ANION GAP 12 (8-16); ASPARTATE AMINO TRANSFERASE 20 U/L (10-37); BILIRUBIN,TOTAL 0.1 MG/DL (0.1-1.0); BLOOD UREA NITROGEN 22 MG/DL (7-18); CALCIUM 7.7 MG/DL (8.5-10.1); CHLORIDE 116 MMOL/L (99-107); CREATININE 1.22 MG/DL (0.40-0.90); GLUCOSE 88 MG/DL (70-104); POTASSIUM 3.6 MMOL/L (3.5-5.1); SODIUM 147 MMOL/L (135-145); TOTAL CARBON DIOXIDE 18.9 MMOL/L (24-32); TOTAL PROTEIN 5.4 G/DL (6.4-8.2); eGFR 43 ML/MIN
[2021-05-25 09:53] LABS: APTT 29 SECONDS (22-32)
[2021-05-25] MEDS ORDERED: TRAZ150T78 PO (10:04)
[2021-05-25] MEDS ORDERED: pantoprazole 40MG/NS 100ML BAG 100 ML IV SCH (11:00)
--- NOTE | 2021-05-25 12:01 | NUR ---
Went to see patient about alcohol use and to see if patient was interested in treatment options and I was unable to wake patient up. I will try again later.
[2021-05-25] MEDS: dextrose 5%-1/4 normal saline 1,000 ML IV SCH (13:40)
[2021-05-25 18:00] VITALS: BP 178/84
[2021-05-25 20:15] VITALS: BP 148/64
[2021-05-25] MEDS: traZODone 150mg tablet PO SCH (20:51)
[2021-05-26] VITALS: BP 176/94
[2021-05-26 00:44] VITALS: BP 137/69
[2021-05-26] MEDS: pantoprazole 40MG/NS 100ML BAG 100 ML IV SCH ×2 (00:53→08:24)
--- NOTE | 2021-05-26 06:17 | NUR ---
Problems reprioritized. Patient report given, questions answered & plan of care reviewed with YOSSI Fierro.
[2021-05-26 06:21] LABS: BASOPHILS % (AUTO) 0.4 % (0-1); EOSINOPHILS # (AUTO) 0.1 X10'3 (0-0.9); HEMATOCRIT 27.9 % (35.0-45.0); HEMOGLOBIN 9.1 g/dl (12.0-16.0); LYMPHOCYTES # (AUTO) 1.3 X10'3 (1.1-4.8); LYMPHOCYTES % (AUTO) 17.1 % (21-51); MEAN CORPUSCULAR HEMOGLOBIN 33.8 PG (27.0-31.0); MEAN CORPUSCULAR HGB CONC 32.8 g/dL (33.0-36.5); MEAN PLATELET VOLUME 7.6 FL (7.4-10.4); MONOCYTES % (AUTO) 13.3 % (2-12); NEUTROPHILS # (AUTO) 5.4 X10'3 (1.8-7.7); NEUTROPHILS % (AUTO) 68.2 % (42-75); PLATELET COUNT 269 X10'3 (140-440); RED BLOOD COUNT 2.71 X10'6 (4.20-5.60); RED CELL DISTRIBUTION WIDTH 19.9 % (11.5-14.5); WHITE BLOOD COUNT 7.9 X10'3 (4.5-11.0)
[2021-05-26 06:41] LABS: ALBUMIN 2.8 G/DL (3.4-5.0); ALBUMIN/GLOBULIN RATIO 0.9 (1.1-1.5); ALKALINE PHOSPHATASE 56 IU/L (46-116); ANION GAP 10 (8-16); ASPARTATE AMINO TRANSFERASE 19 U/L (10-37); BILIRUBIN,TOTAL 0.4 MG/DL (0.1-1.0); BLOOD UREA NITROGEN 17 MG/DL (7-18); CALCIUM 8.8 MG/DL (8.5-10.1); CHLORIDE 109 MMOL/L (99-107); CHOLESTEROL 270 MG/DL (0-200); CREATININE 0.85 MG/DL (0.40-0.90); GLUCOSE 120 MG/DL (70-104); LDL CHOLESTEROL 47 MG/DL (50-100); SODIUM 143 MMOL/L (135-145); TOTAL CARBON DIOXIDE 24.4 MMOL/L (24-32); TRIGLYCERIDES 63 MG/DL (20-135); eGFR 65 ML/MIN
[2021-05-26 06:51] LABS: ALANINE AMINOTRANSFERASE 11 U/L (12-78)
[2021-05-26 07:10] LABS: HDL CHOLESTEROL > 155 MG/DL (35-60)
[2021-05-26 07:55] VITALS: BP 184/74
[2021-05-26] MEDS ORDERED: lisinopril 20mg tablet PO SCH (08:00)
[2021-05-26] MEDS ORDERED: amLODIPine 5mg tablet PO SCH (08:00)
[2021-05-26] MEDS: multivitamins, therapeutics tablet PO SCH (08:22)
[2021-05-26] MEDS: docusate sod 100mg capsule PO SCH ×2 (08:23→19:44)
[2021-05-26] MEDS: PARoxetine 20mg tablet PO SCH (08:23)
[2021-05-26] MEDS: K and/or MAG REPLACEMENT MC SCH ×2 (08:24→19:44)
[2021-05-26] MEDS: thiamine 100mg/ml 2ml inj. IV SCH ×3 (08:24→20:44)
[2021-05-26] MEDS: folic acid 1mg/0.2ml inj IV SCH (08:30)
[2021-05-26] MEDS: dextrose 5%-1/4 normal saline 1,000 ML IV SCH (09:46)
[2021-05-26 11:00] VITALS: BP 179/82
[2021-05-26] MEDS: naltrexone 50mg tablet PO SCH (11:20)
[2021-05-26] MEDS: nicotine 14mg patch - 24hr TD SCH (11:25)
--- NOTE | 2021-05-26 18:20 | NUR ---
Patient in room [facility]. I have received report from YOSSI Fierro and had the opportunity to ask questions and assume patient care. Pt sitting up in bed ate dinner, no complaints, alert and oriented. Addendum: 05/26/21 at 1900 by Savanna Zavala RN Amended: Links added.
[2021-05-26 19:17] VITALS: BP 139/75
[2021-05-26] MEDS: LORazepam 1 MG tablet PO PRN ×2 (19:58→22:18)
--- NOTE | 2021-05-26 20:00 | NUR ---
moving self in bed with ease, some shakiness, aggitation, forgets date, wants to go drink and smoke. Addendum: 05/26/21 at 2000 by Savanna Zavala RN Amended: Links added.
[2021-05-26] MEDS: traZODone 150mg tablet PO SCH (20:44)
[2021-05-26 23:24] VITALS: BP 153/76
--- NOTE | 2021-05-27 02:30 | NUR ---
more calm sleeping, inc of urine. Addendum: 05/27/21 at 0321 by Savanna Zavala RN Amended: Links added.
[2021-05-27] MEDS ORDERED: LORazepam 2 mg/ml vial IV PRN (05:10)
[2021-05-27] MEDS: dextrose 5%-1/4 normal saline 1,000 ML IV SCH ×2 (05:40→09:52)
[2021-05-27] MEDS: LORazepam 1 MG tablet PO PRN ×2 (06:05→18:48)
--- NOTE | 2021-05-27 06:08 | NUR ---
dirk jackson ativan given. Addendum: 05/27/21 at 0608 by Savanna Zavala RN Amended: Links added.
[2021-05-27 06:19] LABS: BASOPHILS % (AUTO) 0.6 % (0-1); EOSINOPHILS # (AUTO) 0.1 X10'3 (0-0.9); EOSINOPHILS % (AUTO) 1.5 % (0-6); HEMATOCRIT 31.9 % (35.0-45.0); HEMOGLOBIN 10.4 g/dl (12.0-16.0); LYMPHOCYTES # (AUTO) 1.3 X10'3 (1.1-4.8); LYMPHOCYTES % (AUTO) 21.8 % (21-51); MEAN CORPUSCULAR HEMOGLOBIN 33.5 PG (27.0-31.0); MEAN CORPUSCULAR HGB CONC 32.5 g/dL (33.0-36.5); MEAN CORPUSCULAR VOLUME 103.1 FL (78-98); MEAN PLATELET VOLUME 7.7 FL (7.4-10.4); MONOCYTES # (AUTO) 1.1 X10'3 (0-0.9); MONOCYTES % (AUTO) 17.8 % (2-12); NEUTROPHILS # (AUTO) 3.5 X10'3 (1.8-7.7); NEUTROPHILS % (AUTO) 58.3 % (42-75); PLATELET COUNT 246 X10'3 (140-440); RED CELL DISTRIBUTION WIDTH 20.3 % (11.5-14.5); WHITE BLOOD COUNT 5.9 X10'3 (4.5-11.0)
--- NOTE | 2021-05-27 06:25 | NUR ---
Problems reprioritized. Patient report given, questions answered & plan of care reviewed with Anette SY. Addendum: 05/27/21 at 0625 by Savanna Zavala RN Amended: Links added.
[2021-05-27 06:31] LABS: ALBUMIN 2.8 G/DL (3.4-5.0); ALBUMIN/GLOBULIN RATIO 0.9 (1.1-1.5); ALKALINE PHOSPHATASE 57 IU/L (46-116); ANION GAP 9 (8-16); ASPARTATE AMINO TRANSFERASE 15 U/L (10-37); BILIRUBIN,TOTAL 0.3 MG/DL (0.1-1.0); BLOOD UREA NITROGEN 10 MG/DL (7-18); BUN/CREATININE RATIO 14.7 (6.6-38.0); CALCIUM 8.5 MG/DL (8.5-10.1); CHLORIDE 104 MMOL/L (99-107); CREATININE 0.68 MG/DL (0.40-0.90); GLUCOSE 110 MG/DL (70-104); SODIUM 139 MMOL/L (135-145); TOTAL CARBON DIOXIDE 25.8 MMOL/L (24-32); TOTAL PROTEIN 5.9 G/DL (6.4-8.2); eGFR 85 ML/MIN
--- NOTE | 2021-05-27 06:33 | NUR ---
Patient in room [facility]. I have received report from YOSSI Price and had the opportunity to ask questions and assume patient care.
[2021-05-27 07:00] VITALS: BP_SYST 129; BP_SYST 152; BP_DIAS 81; BP_DIAS 86
[2021-05-27 07:03] LABS: ALANINE AMINOTRANSFERASE 10 U/L (12-78)
[2021-05-27 07:08] LABS: ANISOCYTOSIS 3+; PLATELET ESTIMATE NORMAL; TOTAL CELLS COUNTED 100
[2021-05-27 07:09] LABS: SCHISTOCYTES FEW; TARGET CELLS FEW
[2021-05-27] MEDS: potassium Cl 20 mEq SR tablet PO PRN ×2 (07:29→12:36)
[2021-05-27] MEDS: PARoxetine 20mg tablet PO SCH (07:31)
[2021-05-27] MEDS: docusate sod 100mg capsule PO SCH ×2 (07:33→20:23)
[2021-05-27] MEDS: multivitamins, therapeutics tablet PO SCH (07:33)
[2021-05-27] MEDS: thiamine 100mg/ml 2ml inj. IV SCH ×3 (07:33→20:23)
[2021-05-27] MEDS: lisinopril 20mg tablet PO SCH (07:33)
[2021-05-27] MEDS: amLODIPine 5mg tablet PO SCH (07:34)
[2021-05-27] MEDS: naltrexone 50mg tablet PO SCH (07:46)
[2021-05-27] MEDS: nicotine 14mg patch - 24hr TD SCH (07:47)
[2021-05-27 08:00] VITALS: BP 152/86
[2021-05-27] MEDS: K and/or MAG REPLACEMENT MC SCH ×2 (08:32→20:00)
[2021-05-27] MEDS: folic acid 1mg tablet PO SCH (08:42)
[2021-05-27 11:35] VITALS: BP 107/53
[2021-05-27 12:43] LABS: MAGNESIUM 0.8 MG/DL (1.5-2.4)
--- NOTE | 2021-05-27 13:06 | NUR ---
VS stable. Pt Mg level 0.8, Started on Mg level protocol. notified at 7077.
[2021-05-27 18:00] VITALS: BP 135/68
--- NOTE | 2021-05-27 18:19 | NUR ---
VS stable. Pt was lethargic throughout the day, MD notified. Ativan held per discussion, as of now- no signs of etoh withdrawl nor sz. Sz and fall precautions in place. Mg and K replaced per protocol.
--- NOTE | 2021-05-27 18:22 | NUR ---
Problems reprioritized. Patient report given, questions answered & plan of care reviewed with YOSSI Jimenez.
--- NOTE | 2021-05-27 18:30 | NUR ---
Patient in room [facility]. I have received report from colleen SY and had the opportunity to ask questions and assume patient care.
[2021-05-27] MEDS: traZODone 150mg tablet PO SCH (20:23)
--- NOTE | 2021-05-27 20:59 | NUR ---
K lab done 5.9 Dr MAYER NOTIFIED. ORDER RECEIVED TO CHECK POTASSIUM LEVEL AGAIN. LAB ORDER ENTER AND SCHEDULE FOR 2199.
--- NOTE | 2021-05-27 22:19 | NUR ---
Potassium lab done 6.4 DR gonsales notifed. order received for kayexalate 15 gram standard dose.
[2021-05-27] MEDS ORDERED: sodium polystyrene sulfonate 15gm/60ml oral suspension PO ONE (22:20)
--- NOTE | 2021-05-27 22:36 | NUR ---
Kayexalate 15g/[address] ordered. Will ckeck potassium level in AM.
[2021-05-28 00:01] VITALS: BP 128/67
[2021-05-28] MEDS: LORazepam 1 MG tablet PO PRN (03:29)
[2021-05-28] MEDS ORDERED: LORazepam 1 MG tablet PO PRN (05:10)
[2021-05-28 06:57] LABS: BASOPHILS % (AUTO) 0.4 % (0-1); EOSINOPHILS % (AUTO) 0.6 % (0-6); HEMATOCRIT 27.3 % (35.0-45.0); HEMOGLOBIN 9.1 g/dl (12.0-16.0); LYMPHOCYTES # (AUTO) 0.9 X10'3 (1.1-4.8); LYMPHOCYTES % (AUTO) 15.1 % (21-51); MEAN CORPUSCULAR HEMOGLOBIN 33.6 PG (27.0-31.0); MEAN CORPUSCULAR HGB CONC 33.5 g/dL (33.0-36.5); MEAN CORPUSCULAR VOLUME 100.2 FL (78-98); MONOCYTES # (AUTO) 1.1 X10'3 (0-0.9); MONOCYTES % (AUTO) 19.4 % (2-12); NEUTROPHILS # (AUTO) 3.7 X10'3 (1.8-7.7); NEUTROPHILS % (AUTO) 64.5 % (42-75); PLATELET COUNT 240 X10'3 (140-440); RED BLOOD COUNT 2.72 X10'6 (4.20-5.60); RED CELL DISTRIBUTION WIDTH 19.6 % (11.5-14.5); WHITE BLOOD COUNT 5.7 X10'3 (4.5-11.0)
[2021-05-28 07:00] VITALS: BP 98/62
--- NOTE | 2021-05-28 07:11 | NUR ---
Problems reprioritized. Patient report given, questions answered & plan of care reviewed with BLAIR SY..
[2021-05-28 07:42] LABS: ANISOCYTOSIS 2+; PLATELET ESTIMATE NORMAL; POIKILOCYTOSIS FEW; POLYCHROMASIA FEW; TARGET CELLS FEW
[2021-05-28 07:50] LABS: ALANINE AMINOTRANSFERASE 10 U/L (12-78); ALBUMIN 2.7 G/DL (3.4-5.0); ALBUMIN/GLOBULIN RATIO 0.8 (1.1-1.5); ALKALINE PHOSPHATASE 62 IU/L (46-116); ANION GAP 7 (8-16); ASPARTATE AMINO TRANSFERASE 11 U/L (10-37); BILIRUBIN,TOTAL 0.2 MG/DL (0.1-1.0); BLOOD UREA NITROGEN 14 MG/DL (7-18); BUN/CREATININE RATIO 14.9 (6.6-38.0); CHLORIDE 105 MMOL/L (99-107); CREATININE 0.94 MG/DL (0.40-0.90); GLUCOSE 131 MG/DL (70-104); MAGNESIUM 2.3 MG/DL (1.5-2.4); POTASSIUM 5.1 MMOL/L (3.5-5.1); SODIUM 138 MMOL/L (135-145); TOTAL CARBON DIOXIDE 25.9 MMOL/L (24-32); TOTAL PROTEIN 5.9 G/DL (6.4-8.2); eGFR 58 ML/MIN
[2021-05-28] MEDS: K and/or MAG REPLACEMENT MC SCH ×2 (08:00→19:29)
[2021-05-28] MEDS ORDERED: folic acid 1mg tablet PO SCH (08:00)
[2021-05-28] MEDS: amLODIPine 5mg tablet PO SCH (08:00)
[2021-05-28] MEDS: lisinopril 20mg tablet PO SCH (08:00)
--- NOTE | 2021-05-28 08:40 | NUR ---
Patient still sedated/very sleepy at this time. Breathing normally
[2021-05-28] MEDS: PARoxetine 20mg tablet PO SCH (09:03)
[2021-05-28] MEDS: multivitamins, therapeutics tablet PO SCH (09:04)
[2021-05-28] MEDS: docusate sod 100mg capsule PO SCH ×2 (09:04→20:57)
[2021-05-28] MEDS: folic acid 1mg tablet PO SCH (09:04)
[2021-05-28] MEDS: nicotine 14mg patch - 24hr TD SCH (09:06)
[2021-05-28] MEDS: naltrexone 50mg tablet PO SCH (09:53)
[2021-05-28] MEDS: dextrose 5%-1/4 normal saline 1,000 ML IV SCH (09:53)
--- NOTE | 2021-05-28 10:28 | NUR ---
Initial: Pt admit for EtOH abuse with weakness, diarrhea, anemia, and ZAINAB with hypernatremia. Pt currently on EtOH w/d protocol, receiving routine Thiamine, Folic acid, and MVI. Noted pt with a low BMI of 17.0 using documented wt of 45 kg which isn't scaled. Most recent scaled wt hx in [facility] is 53.8 kg from 04/28/17 using a standing scale. Pt currently on a 2 g Na restricted diet and overall eating well with mostly 100% PO intake with the exception of 25% PO intake x 2 meals, overall meeting estimated nutrient needs. Pt with no documented decrease in muscle strength or edema. LBM 05/27. No nutrition intervention implemented at this time. Will continue to follow. Recommendations: 1) Advance to regular diet as medically indicated 2) Continue routine Thiamine, Folic acid, and MVI given EtOH hx with elevated MCV 3) Bowel care PRN 4) Scaled weight this admit; weekly scaled weights thereafter Addendum: 05/28/21 at [address] Amended: Links added.
[2021-05-28 11:00] VITALS: BP 136/62
[2021-05-28 18:00] VITALS: BP 138/71
[2021-05-28] MEDS: traZODone 150mg tablet PO SCH (20:57)
[2021-05-29] VITALS: BP 156/76
[2021-05-29] MEDS ORDERED: LORazepam 1 MG tablet PO PRN (05:10)
[2021-05-29] MEDS ORDERED: LORazepam 2 mg/ml vial IV PRN (05:10)
[2021-05-29 06:07] LABS: BASOPHILS % (AUTO) 0.3 % (0-1); EOSINOPHILS % (AUTO) 0.2 % (0-6); HEMATOCRIT 25.3 % (35.0-45.0); HEMOGLOBIN 8.4 g/dl (12.0-16.0); LYMPHOCYTES # (AUTO) 0.9 X10'3 (1.1-4.8); LYMPHOCYTES % (AUTO) 12.1 % (21-51); MEAN CORPUSCULAR HEMOGLOBIN 33.1 PG (27.0-31.0); MEAN CORPUSCULAR VOLUME 100.2 FL (78-98); MEAN PLATELET VOLUME 7.6 FL (7.4-10.4); MONOCYTES # (AUTO) 2.1 X10'3 (0-0.9); MONOCYTES % (AUTO) 29.5 % (2-12); NEUTROPHILS # (AUTO) 4.2 X10'3 (1.8-7.7); NEUTROPHILS % (AUTO) 57.9 % (42-75); PLATELET COUNT 239 X10'3 (140-440); RED BLOOD COUNT 2.53 X10'6 (4.20-5.60); RED CELL DISTRIBUTION WIDTH 19.3 % (11.5-14.5); WHITE BLOOD COUNT 7.2 X10'3 (4.5-11.0)
[2021-05-29 06:14] LABS: ALANINE AMINOTRANSFERASE 9 U/L (12-78); ALBUMIN 2.5 G/DL (3.4-5.0); ALBUMIN/GLOBULIN RATIO 0.8 (1.1-1.5); ALKALINE PHOSPHATASE 63 IU/L (46-116); ANION GAP 7 (8-16); ASPARTATE AMINO TRANSFERASE 8 U/L (10-37); BILIRUBIN,TOTAL 0.3 MG/DL (0.1-1.0); BLOOD UREA NITROGEN 16 MG/DL (7-18); CALCIUM 8.8 MG/DL (8.5-10.1); CHLORIDE 101 MMOL/L (99-107); GLUCOSE 116 MG/DL (70-104); MAGNESIUM 1.3 MG/DL (1.5-2.4); POTASSIUM 3.7 MMOL/L (3.5-5.1); SODIUM 133 MMOL/L (135-145); TOTAL CARBON DIOXIDE 25.1 MMOL/L (24-32); TOTAL PROTEIN 5.8 G/DL (6.4-8.2); eGFR 70 ML/MIN
--- NOTE | 2021-05-29 06:30 | NUR ---
Patient in room [facility]. I have received report from Radha SY and had the opportunity to ask questions and assume patient care.
--- NOTE | 2021-05-29 06:35 | NUR ---
0137 ativan 1 mg po was given for agitiation tremors Addendum: 05/29/21 at 0637 by Jesus Harris RN 0230 pt calm resting after ativan
[2021-05-29 07:00] VITALS: BP 150/70
[2021-05-29] MEDS: acetaminophen 325mg tablet PO PRN (07:35)
[2021-05-29] MEDS: lisinopril 20mg tablet PO SCH (07:38)
[2021-05-29] MEDS: amLODIPine 5mg tablet PO SCH (07:38)
[2021-05-29] MEDS: docusate sod 100mg capsule PO SCH ×2 (07:40→20:00)
[2021-05-29] MEDS: folic acid 1mg tablet PO SCH (07:43)
[2021-05-29] MEDS: multivitamins, therapeutics tablet PO SCH (07:43)
[2021-05-29] MEDS: PARoxetine 20mg tablet PO SCH (07:46)
[2021-05-29] MEDS: nicotine 14mg patch - 24hr TD SCH (07:56)
[2021-05-29] MEDS ORDERED: folic acid 1mg tablet PO SCH (08:00)
[2021-05-29] MEDS: K and/or MAG REPLACEMENT MC SCH ×2 (08:00→20:00)
[2021-05-29] MEDS ORDERED: thiamine 100mg tablet PO SCH ×2 (08:00)
[2021-05-29] MEDS: dextrose 5%-1/4 normal saline 1,000 ML IV SCH (09:48)
[2021-05-29] MEDS: naltrexone 50mg tablet PO SCH (09:48)
--- NOTE | 2021-05-29 11:30 | NUR ---
Message: Felix Surg [phone] Jocelynn De León Patient has a Mag of 1.3 would you like me to add the protocol on for replacement thanks Felix.
[2021-05-29] MEDS: piperacillin/tazo 3.375gm/50ml 50 ML IV SCH ×3 (11:59→23:13)
[2021-05-29 12:02] VITALS: BP 124/66
[2021-05-29] MEDS ORDERED: potassium Cl 20 mEq SR tablet PO PRN (13:10)
[2021-05-29] MEDS: magnesium Cl slow-release 64mg tablet PO PRN (13:25)
--- NOTE | 2021-05-29 16:54 | NUR ---
Student documentation: I have reviewed and agree with all interventions, assessments performed and documented by Alyse NIEVES.
[2021-05-29 17:06] LABS: CLARITY,URINE CLEAR (Clear); COLOR,URINE YELLOW (Yellow); GLUCOSE, URINE NEGATIVE (Neg); KETONES,URINE NEGATIVE (Neg); LEUKOCYTE ESTERASE ,URINE SMALL (Neg); NITRITES, URINE POSITIVE (Neg); OCCULT BLOOD,URINE NEGATIVE (Neg); PH,URINE 5.5 (4.8-8.0); PROTEIN,URINE NEGATIVE (Neg); UROBILINOGEN,URINE 0.2 E.U/dL (0.2-1.0)
[2021-05-29 17:11] LABS: UA COLLECTION TYPE STRAIGHT CATH
[2021-05-29 17:13] LABS: BACTERIA,URINE FEW /HPF (Neg); MUCUS STRANDS FEW /LPF (Neg); RBC,URINE NONE SEEN /HPF (0-2); SQUAMOUS EPITHELIAL CELL,UR FEW /LPF (FEW)
--- NOTE | 2021-05-29 18:12 | NUR ---
Problems reprioritized. Patient report given, questions answered & plan of care reviewed with Jesus SY
[2021-05-29 20:00] VITALS: BP 134/69
[2021-05-29] MEDS: traZODone 150mg tablet PO SCH (23:08)
[2021-05-30] VITALS: BP 148/69
[2021-05-30] MEDS: dextrose 5%-1/4 normal saline 1,000 ML IV SCH (05:25)
[2021-05-30 06:03] LABS: BASOPHILS % (AUTO) 0.3 % (0-1); EOSINOPHILS % (AUTO) 0 % (0-6); HEMATOCRIT 29.2 % (35.0-45.0); HEMOGLOBIN 9.6 g/dl (12.0-16.0); LYMPHOCYTES # (AUTO) 0.9 X10'3 (1.1-4.8); LYMPHOCYTES % (AUTO) 10.1 % (21-51); MEAN CORPUSCULAR HEMOGLOBIN 33.4 PG (27.0-31.0); MEAN CORPUSCULAR HGB CONC 32.8 g/dL (33.0-36.5); MEAN PLATELET VOLUME 7.9 FL (7.4-10.4); MONOCYTES # (AUTO) 2.5 X10'3 (0-0.9); NEUTROPHILS # (AUTO) 5.5 X10'3 (1.8-7.7); NEUTROPHILS % (AUTO) 61.6 % (42-75); PLATELET COUNT 261 X10'3 (140-440); RED BLOOD COUNT 2.86 X10'6 (4.20-5.60); RED CELL DISTRIBUTION WIDTH 19.7 % (11.5-14.5); WHITE BLOOD COUNT 8.9 X10'3 (4.5-11.0)
[2021-05-30 06:26] LABS: ALANINE AMINOTRANSFERASE 9 U/L (12-78); ALBUMIN 2.5 G/DL (3.4-5.0); ALBUMIN/GLOBULIN RATIO 0.6 (1.1-1.5); ALKALINE PHOSPHATASE 89 IU/L (46-116); ANION GAP 12 (8-16); ASPARTATE AMINO TRANSFERASE 15 U/L (10-37); BILIRUBIN,TOTAL 0.4 MG/DL (0.1-1.0); BLOOD UREA NITROGEN 16 MG/DL (7-18); BUN/CREATININE RATIO 17.4 (6.6-38.0); CALCIUM 9.6 MG/DL (8.5-10.1); CHLORIDE 99 MMOL/L (99-107); CREATININE 0.92 MG/DL (0.40-0.90); GLUCOSE 119 MG/DL (70-104); MAGNESIUM 1.4 MG/DL (1.5-2.4); POTASSIUM 3.4 MMOL/L (3.5-5.1); SODIUM 134 MMOL/L (135-145); TOTAL CARBON DIOXIDE 22.9 MMOL/L (24-32); TOTAL PROTEIN 6.4 G/DL (6.4-8.2); eGFR 60 ML/MIN
[2021-05-30 06:35] LABS: TOTAL CELLS COUNTED 100
[2021-05-30 06:37] LABS: ACANTHOCYTES FEW; ANISOCYTOSIS 2+; BURR CELLS FEW; ELLIPTOCYTES FEW; PLATELET ESTIMATE NORMAL; SCHISTOCYTES FEW; TARGET CELLS FEW; TEAR DROP CELLS FEW
[2021-05-30 07:08] VITALS: BP 162/73
[2021-05-30] MEDS: piperacillin/tazo 3.375gm/50ml 50 ML IV SCH ×2 (07:18→15:27)
--- NOTE | 2021-05-30 07:19 | NUR ---
Patient in room [facility] 349B. I have received report from YOSSI JACK and had the opportunity to ask questions and assume patient care.
[2021-05-30] MEDS: folic acid 1mg tablet PO SCH (07:25)
[2021-05-30] MEDS: multivitamins, therapeutics tablet PO SCH (07:25)
[2021-05-30] MEDS: naltrexone 50mg tablet PO SCH (07:25)
[2021-05-30] MEDS: magnesium Cl slow-release 64mg tablet PO PRN (07:27)
[2021-05-30] MEDS: amLODIPine 5mg tablet PO SCH (07:27)
[2021-05-30] MEDS: PARoxetine 20mg tablet PO SCH (07:27)
[2021-05-30] MEDS: lisinopril 20mg tablet PO SCH (07:27)
[2021-05-30] MEDS: potassium Cl 20 mEq SR tablet PO PRN ×3 (07:28→20:42)
[2021-05-30] MEDS: docusate sod 100mg capsule PO SCH ×2 (07:28→20:00)
[2021-05-30] MEDS: nicotine 14mg patch - 24hr TD SCH (07:28)
[2021-05-30] MEDS: K and/or MAG REPLACEMENT MC SCH ×2 (08:31→20:00)
[2021-05-30 11:00] VITALS: BP 126/54
--- NOTE | 2021-05-30 15:33 | NUR ---
Student documentation: I have reviewed and agree with all interventions and documented by SN ROSANNA.
--- NOTE | 2021-05-30 18:26 | NUR ---
Problems reprioritized. Patient report given, questions answered & plan of care reviewed with Mae SY.
--- NOTE | 2021-05-30 18:28 | NUR ---
Problems reprioritized. Patient report given, questions answered & plan of care reviewed with YOSSI SILVEIRA.
[2021-05-30 20:00] VITALS: BP 153/73
[2021-05-30] MEDS: traZODone 150mg tablet PO SCH (20:42)
[2021-05-30] MEDS: acetaminophen 325mg tablet PO PRN (20:43)
--- NOTE | 2021-05-30 23:04 | NUR ---
resting without changes. appears comfortable.
[2021-05-31] VITALS: BP 135/68
[2021-05-31] MEDS: dextrose 5%-1/4 normal saline 1,000 ML IV SCH ×2 (00:05→21:30)
--- NOTE | 2021-05-31 01:05 | NUR ---
repositioned in bed for comfort.
[2021-05-31] MEDS: piperacillin/tazo 3.375gm/50ml 50 ML IV SCH ×4 (01:28→23:28)
--- NOTE | 2021-05-31 03:16 | NUR ---
resting without s&s of distress.
--- NOTE | 2021-05-31 06:05 | NUR ---
Problems reprioritized. Patient report given, questions answered & plan of care reviewed with YOSSI SHELTON.
--- NOTE | 2021-05-31 06:46 | NUR ---
Patient in room [facility] 348A. I have received report from YOSSI SILVEIRA and had the opportunity to ask questions and assume patient care. Addendum: 05/31/21 at 0648 by Kiera Weeks RN 349A NOT 348A
[2021-05-31 06:48] LABS: MAGNESIUM 1.3 MG/DL (1.5-2.4); PHOSPHORUS 2.9 MG/DL (2.3-4.5); POTASSIUM 4.2 MMOL/L (3.5-5.1)
[2021-05-31 07:00] VITALS: BP 162/77
[2021-05-31] MEDS: multivitamins, therapeutics tablet PO SCH (07:42)
[2021-05-31] MEDS: PARoxetine 20mg tablet PO SCH (07:42)
[2021-05-31] MEDS: naltrexone 50mg tablet PO SCH (07:43)
[2021-05-31] MEDS: folic acid 1mg tablet PO SCH (07:43)
[2021-05-31] MEDS: lisinopril 20mg tablet PO SCH (07:44)
[2021-05-31] MEDS: amLODIPine 5mg tablet PO SCH (07:44)
[2021-05-31] MEDS: nicotine 14mg patch - 24hr TD SCH (07:47)
[2021-05-31] MEDS: docusate sod 100mg capsule PO SCH ×2 (07:47→19:46)
[2021-05-31] MEDS: K and/or MAG REPLACEMENT MC SCH ×2 (08:00→19:47)
[2021-05-31 11:00] VITALS: BP 128/128
[2021-05-31] MEDS: lactose-reduced food (Ensure High Protein) 237ml bottle PO SCH ×2 (13:00→18:00)
--- NOTE | 2021-05-31 18:41 | NUR ---
Problems reprioritized. Patient report given, questions answered & plan of care reviewed with YOSSI SILVEIRA.
--- NOTE | 2021-05-31 18:45 | NUR ---
Patient in room [facility]. I have received report from YOSSI SHELTON and had the opportunity to ask questions and assume patient care. Addendum: 05/31/21 at 1846 by Mae Cervantes RN Amended: Links added.
[2021-05-31] MEDS: traZODone 150mg tablet PO SCH (19:45)
[2021-05-31] MEDS: magnesium Cl slow-release 64mg tablet PO PRN (19:45)
[2021-05-31 20:00] VITALS: BP 143/67
[2021-06-01] VITALS: BP 132/55
--- NOTE | 2021-06-01 01:48 | NUR ---
pt inc of smear of stool, skin care done and new pure wick on. pt requesting a sip of vodka attempt to reorient her to being in the hospital, without success.
[2021-06-01] MEDS: acetaminophen 325mg tablet PO PRN (04:55)
--- NOTE | 2021-06-01 04:58 | NUR ---
medicated for complaint of pain.
--- NOTE | 2021-06-01 06:04 | NUR ---
Problems reprioritized. Patient report given, questions answered & plan of care reviewed with YOSSI SHELTON. Addendum: 06/01/21 at 0604 by Mae Cervantes RN Amended: Links added.
[2021-06-01 06:17] LABS: MAGNESIUM 1.4 MG/DL (1.5-2.4); PHOSPHORUS 2.9 MG/DL (2.3-4.5); POTASSIUM 3.7 MMOL/L (3.5-5.1)
--- NOTE | 2021-06-01 06:33 | NUR ---
Patient in room [facility] 349A. I have received report from YOSSI SILVEIRA and had the opportunity to ask questions and assume patient care.
[2021-06-01 07:00] VITALS: BP_SYST 179; BP_SYST 191; BP_DIAS 122; BP_DIAS 84
[2021-06-01] MEDS: docusate sod 100mg capsule PO SCH (08:00)
[2021-06-01] MEDS: lactose-reduced food (Ensure High Protein) 237ml bottle PO SCH (08:00)
[2021-06-01] MEDS: K and/or MAG REPLACEMENT MC SCH (08:00)
[2021-06-01] MEDS: nicotine 14mg patch - 24hr TD SCH (08:10)
[2021-06-01] MEDS: folic acid 1mg tablet PO SCH (08:15)
[2021-06-01] MEDS: naltrexone 50mg tablet PO SCH (08:15)
[2021-06-01] MEDS: amLODIPine 5mg tablet PO SCH (08:17)
[2021-06-01] MEDS: PARoxetine 20mg tablet PO SCH (08:18)
[2021-06-01] MEDS: multivitamins, therapeutics tablet PO SCH (08:20)
[2021-06-01] MEDS: lisinopril 20mg tablet PO SCH (08:21)
[2021-06-01] MEDS: piperacillin/tazo 3.375gm/50ml 50 ML IV SCH (09:19)
[2021-06-01 11:00] VITALS: BP 106/49
--- NOTE | 2021-06-01 11:26 | NUR ---
Student Medication Administration: For this medication-pass time frame [id number], all medications were reviewed, administered and documented per hospital policy by Kate Somers. Student documentation: I have reviewed and agree with all interventions, assessments performed and documented by Kate Somers.
--- NOTE | 2021-06-01 15:00 | NUR ---
PATIENT BELONGINGS FOUND IN CLOSET Addendum: 06/01/21 at 1748 by Kiera Weeks RN Amended: Links added.
--- NOTE | 2021-06-01 17:50 | NUR ---
PATIENT STABLE AND APPROPRIATE FOR TRANSFER, IV REMOVED, EDUCATION GIVEN, REPORT CALLED IN TO YOSSI ALMARAZ FROM [facility], PATIENT TAKEN TO [facility] BY [facility] AND ITS STAFF
== END 2021-06-01 14:39 | DRG 640 ==
LOC: ER 02:11 → ED HOLD 05:14 → SUR 3N 07:23
PROVIDERS: ADMIT Internal Medicine; ATTEND Internal Medicine
DX: E86.0 Dehydration (principal); N17.0 Acute kidney failure with tubular necrosis; N39.0 Urinary tract infection, site not specified; Z68.1 Body mass index [BMI] 19.9 or less, adult; R64 Cachexia; E87.0 Hyperosmolality and hypernatremia; E87.2 Acidosis; D64.9 Anemia, unspecified; Z20.822 Contact with and (suspected) exposure to COVID-19; F10.229 Alcohol dependence with intoxication, unspecified; J44.9 Chronic obstructive pulmonary disease, unspecified; F32.A Depression, unspecified; F17.210 Nicotine dependence, cigarettes, uncomplicated; Z60.2 Problems related to living alone; I10 Essential (primary) hypertension; R62.7 Adult failure to thrive; G89.29 Other chronic pain; K21.9 Gastro-esophageal reflux disease without esophagitis; I95.9 Hypotension, unspecified; R10.13 Epigastric pain; R19.7 Diarrhea, unspecified; Z82.3 Family history of stroke; Z90.710 Acquired absence of both cervix and uterus; Z81.1 Family history of alcohol abuse and dependence; Z79.899 Other long term (current) drug therapy; Z71.6 Tobacco abuse counseling
CPT/HCPCS: 36415; 71045; 80053; 80061; 80320; 81001; 82140; 82948; 83036; 83605; 83690; 83735; 83880; 84100; 84132; 84145; 84443; 84484; 85007; 85008; 85025; 85027; 85610; 85730; 86870; 86885; 86900; 86901; 86902; 86905; 87040; 87045; 87046; 87088; 87635; 89055; 93005; 96361; 96374; 96375; 97110; 97161; 97530; 97535; 99285; C9113; G0378; J1650; J2060; J2405; J2543; J3411; J3475; J3490; J7030; J7042

== ENCOUNTER 2022-03-28 09:41 | Emergency (ER) | payer MEDICARE ==
[~2022-03-28] VITALS: Ht 160 cm; Wt 50.0 kg
[~2022-03-28 09:41] MED LIST changes: +OMEP40CA21 PO; -PANT40TA54 PO; -TRAZ-256 PO; +TRAZ150T78 PO
[2022-03-28 09:44] VITALS: BP 194/88
[2022-03-28 10:20] LABS: BASOPHILS # (AUTO) 0.1 X10'3 (0-0.2); BASOPHILS % (AUTO) 1.2 % (0-1); EOSINOPHILS % (AUTO) 0.6 % (0-6); HEMATOCRIT 34.3 % (35.0-45.0); HEMOGLOBIN 11.1 g/dl (12.0-16.0); LYMPHOCYTES % (AUTO) 27.5 % (21-51); MEAN CORPUSCULAR HEMOGLOBIN 31.9 PG (27.0-31.0); MEAN CORPUSCULAR HGB CONC 32.5 g/dL (33.0-36.5); MEAN CORPUSCULAR VOLUME 98.1 FL (78-98); MEAN PLATELET VOLUME 7.6 FL (7.4-10.4); MONOCYTES # (AUTO) 0.5 X10'3 (0-0.9); MONOCYTES % (AUTO) 7.5 % (2-12); NEUTROPHILS # (AUTO) 4.5 X10'3 (1.8-7.7); NEUTROPHILS % (AUTO) 63.2 % (42-75); PLATELET COUNT 255 X10'3 (140-440); RED BLOOD COUNT 3.49 X10'6 (4.20-5.60); RED CELL DISTRIBUTION WIDTH 19.8 % (11.5-14.5); WHITE BLOOD COUNT 7.1 X10'3 (4.5-11.0)
[2022-03-28 10:37] LABS: ALANINE AMINOTRANSFERASE 19 U/L (12-78); ALBUMIN 4.2 G/DL (3.4-5.0); ALBUMIN/GLOBULIN RATIO 1.3 (1.1-1.5); ALKALINE PHOSPHATASE 89 IU/L (46-116); ANION GAP 18 (8-16); ASPARTATE AMINO TRANSFERASE 29 U/L (10-37); BILIRUBIN,TOTAL 0.4 MG/DL (0.1-1.0); BLOOD UREA NITROGEN 19 MG/DL (7-18); BUN/CREATININE RATIO 22.1 (6.6-38.0); CALCIUM 9.6 MG/DL (8.5-10.1); CHLORIDE 101 MMOL/L (99-107); CREATININE 0.86 MG/DL (0.40-0.90); GLUCOSE 69 MG/DL (70-104); SODIUM 141 MMOL/L (135-145); TOTAL CARBON DIOXIDE 21.6 MMOL/L (24-32); TOTAL PROTEIN 7.5 G/DL (6.4-8.2); eGFR 64 ML/MIN
[2022-03-28 11:31] LABS: ANISOCYTOSIS 2+; PLATELET ESTIMATE NORMAL; TARGET CELLS FEW
--- NOTE | 2022-03-29 10:32 | NUR ---
Received order for consult. Patient was discharged. Left message for patient.
== END 2022-03-28 11:03 | disposition home or self-care (01) ==
LOC: ER 09:42
DX: F10.920 Alcohol use, unspecified with intoxication, uncomplicated (principal); F10.220 Alcohol dependence with intoxication, uncomplicated; I10 Essential (primary) hypertension; K21.9 Gastro-esophageal reflux disease without esophagitis; G89.29 Other chronic pain; Z87.81 Personal history of (healed) traumatic fracture; Z79.899 Other long term (current) drug therapy; Z79.1 Long term (current) use of non-steroidal anti-inflammatories (NSAID)
CPT/HCPCS: 36415; 80053; 80320; 85008; 85025; 99283; 99284